=== PATIENT | female | born 1955 | race Caucasian/White ===

== ENCOUNTER 2017-10-18 09:58 | Day surgery (SDC) | payer MEDICARE, MEDICAID ==
[~2017-10-18] VITALS: Ht 162.6 cm; Wt 61.4 kg
[2017-10-18 10:31] VITALS: BP 124/70
[2017-10-18] MEDS ORDERED: FAMO20TA7 PO (10:58)
[2017-10-18] MEDS ORDERED: MIDAZOLAM 1 MG/ML, 5ML ONE (10:58)
[2017-10-18] MEDS ORDERED: LIDOCAINE 2%, 20ML ONE (10:59)
[2017-10-18] MEDS ORDERED: HEPARIN 1,000 UNITS/ML, 10ML ONE (10:59)
[2017-10-18] MEDS ORDERED: ASPI-650 PO (10:59)
[2017-10-18] MEDS ORDERED: ATOR40TA PO (10:59)
[2017-10-18] MEDS ORDERED: NITROGLYCERIN 5 MG/ML, 10ML ONE (10:59)
[2017-10-18] MEDS ORDERED: TICAGRELOR 90 MG TABLET ONE (10:59)
[2017-10-18] MEDS ORDERED: CYAN10002 IM (10:59)
[2017-10-18] MEDS ORDERED: METO25TA91 PO (10:59)
[2017-10-18] MEDS ORDERED: DIAZ5TAB PO (10:59)
[2017-10-18] MEDS ORDERED: HYDR-879 PO (10:59)
[2017-10-18] MEDS ORDERED: BUPR300T49 PO (10:59)
[2017-10-18] MEDS ORDERED: FENTANYL PF 100 MCG/2ML ONE (10:59)
[2017-10-18] MEDS ORDERED: BIVALIRUDIN 250 MG ONE (10:59)
[2017-10-18] MEDS ORDERED: QUET100T4 PO (10:59)
[2017-10-18] MEDS ORDERED: GABA300C PO (10:59)
[2017-10-18] MEDS ORDERED: VALA500T4 PO (10:59)
[2017-10-18] MEDS ORDERED: CHOL500045 PO (10:59)
[2017-10-18] MEDS ORDERED: DOCU100C33 PO (10:59)
[2017-10-18] MEDS ORDERED: VERAPAMIL 2.5 MG/ML, 2ML ONE (10:59)
[2017-10-18] MEDS ORDERED: [UNRECOGNIZED DRUG - CODE] PO (10:59)
[2017-10-18] MEDS ORDERED: DIPHENHYDRAMINE 50 MG/ML, 1ML ONE (11:47)
[2017-10-18] MEDS ORDERED: SODIUM CHLORIDE 0.9% 1,000 ML IV SCH (13:00)
== END 2017-10-18 14:52 | disposition home or self-care (01) ==
LOC: CACL 09:58
PROVIDERS: ATTEND Internal Medicine Cardiovascular Disease
DX: R07.9 Chest pain, unspecified (principal)
CPT/HCPCS: 93458; 99156; C1769; C1894; J1200; J1644; J2250; J3010; J3490; Q9967; J0583